=== PATIENT | male | born 1955 | race Caucasian/White ===

== ENCOUNTER → 2019-10-18 09:33 | Outpatient (CLI) | payer OTHER, SELFPAY ==
--- NOTE | 2019-10-18 | DI.MRI.S_ITS ---
PROCEDURE: MR LUMBAR SPINE WO CON INDICATIONS: Radiculopathy, lumbar region TECHNIQUE: Noncontrast sagittal T1 spin echo and T2 fast echo, sagittal STIR, axial T1 and T2 fast spin echo through the lumbar spine. In cases with scoliosis, additional coronal T2 fast spin echo may be performed. COMPARISON: None. FINDINGS: Image quality: Excellent. Alignment and Curvature: Mild dextroconvex scoliotic curvature is seen. Minimal anterolisthesis is seen at the L3-4 level. Minimal retrolisthesis is seen at L4-5. Bone Marrow: Marrow is of normal overall signal. No acute vertebral body compression fractures. There is mild anterior wedge deformity seen of L2, with 25% loss of height anteriorly. No acute features are seen. Spinal Cord: Conus medullaris terminates at the L1 level. Visualized cord demonstrates normal signal and size. Paraspinous Soft Tissues: No paravertebral masses. T12-L1: Mild loss of disc height is seen. Loss of disc signal is seen. Bridging endplate osteophytes are seen. Mild to moderate facet hypertrophy is seen. Associated hypertrophy of the ligamentum flavum can be seen. There is no significant right-sided and moderate to severe left-sided neural foraminal narrowing seen. There is a mild degree of compression seen upon the exiting left T12 nerve root. Mild to moderate central canal narrowing is seen. L1-L2: The disc height is well-preserved. Loss of disc signal is seen at this level. Bridging endplate osteophytes are seen. Moderate generalized disc bulge is seen. Mild to moderate facet hypertrophy is seen. There is moderate right-sided and at least moderate left-sided neural foraminal narrowing seen. Moderate central canal narrowing is seen. L2-L3: The disc height is well-preserved. Loss of disc signal is seen at this level. Moderate disc bulge is seen, which is eccentric to the right. There is at least moderate facet hypertrophy seen. There is at least moderate bilateral neural foraminal narrowing seen. There is a degree of compression seen upon the exiting nerve roots. At least moderate central canal narrowing is seen. L3-L4: The disc height is well-preserved. Loss of disc signal is seen at this level. Moderate prominent disc bulge is seen. There is a central disc protrusion. Prominent facet hypertrophy is seen. Associated hypertrophy of the ligamentum flavum can be seen. There is moderate to severe bilateral neural foraminal narrowing seen, left worse than right. There is a degree of compression seen upon the exiting nerve roots. Severe central canal narrowing is seen. L4-L5: The disc height is well-preserved. Loss of disc signal is seen at this level. Moderate disc bulge is seen, which is eccentric to the right. There is a central/right disc extrusion seen, with mild inferior migration of the disc material. There is an associated annular fissure seen. There is moderate to prominent right-sided and moderate left-sided facet hypertrophy seen. Moderate to severe bilateral neural foraminal narrowing is seen, right worse than left. There is a degree of compression seen upon the exiting nerve roots. Moderate central canal narrowing is seen. L5-S1: The disc height and disc signal are relatively well preserved. Moderate generalized disc bulge is seen. Moderate facet joint hypertrophy is seen. Minimal bilateral neural foraminal narrowing is seen. Mild central canal narrowing is seen. IMPRESSION: Multiple levels of lumbar spine degenerative change are seen, which are most prominent at the L3-L4 and L4-5 levels. Moderate to severe bilateral neural foraminal narrowing can be seen at L3-4 and L4-5, with associated nerve root compression. At least moderate neural foraminal narrowing is seen at L2-3, with associated exiting nerve root compression. There is severe central canal narrowing at L3-L4. Dictated by: Marty Cobian M.D. on 10/18/2019 at 10:13 Approved by: Marty Cobian M.D. on 10/18/2019 at 10:19
== END ==
PROVIDERS: PCP Family Medicine; Referring Provider Family Medicine; Visit Provider Family Medicine
DX: M47.26 Other spondylosis with radiculopathy, lumbar region (principal); M47.27 Other spondylosis with radiculopathy, lumbosacral region; M41.86 Other forms of scoliosis, lumbar region; M43.16 Spondylolisthesis, lumbar region; M48.061 Spinal stenosis, lumbar region without neurogenic claudication; M48.07 Spinal stenosis, lumbosacral region
CPT/HCPCS: 72148

== ENCOUNTER → 2020-08-13 15:33 | Outpatient (CLI) | payer MEDICARE, OTHER, SELFPAY ==
[2020-08-13 16:20] LABS: Add Manual Diff / Slide Review NO; Basophils Absolute Auto 100 /uL (0-100); Basophils Percent Auto 0.8 % (0-2); Eosinophils Absolute Auto 100 /uL (0-450); Eosinophils Percent Auto 1.6 % (2-4); Hematocrit 42.7 % (41-53); Hemoglobin 14.4 g/dL (13.5-17.5); Lymphocytes Absolute Auto 2300 /uL (1100-4500); Lymphocytes Percent Auto 35.6 % (25-40); Mean Corpuscular HGB Conc 33.7 % (30-36); Mean Corpuscular Hemoglobin 31.3 PG (26-34); Mean Corpuscular Volume 92.9 fL (80-100); Monocytes Absolute Auto 600 /uL (0-900); Monocytes Percent Auto 9.7 % (3-14); Neutrophils Absolute Auto 3300 /uL (1500-7000); Neutrophils Percent Auto 52.3 % (50-75); Platelet Count 157 X10^3/uL (150-400); Red Blood Cell Count 4.59 X10^6/uL (4.5-5.9); Red Cell Distribution Width 13.4 % (11.6-14.8); White Blood Cell Count 6.3 X10^3/uL (4.5-11.0)
[2020-08-13 16:22] LABS: Alanine Aminotransferase 24 IU/L (<50); Albumin 4.3 g/dL (3.5-5.0); Albumin Globulin Ratio 1.3 (1.0-2.8); Alkaline Phosphatase 85 U/L (38-126); Aspartate Aminotransferase 46 IU/L (17-59); Bilirubin Total 0.8 mg/dL (0.2-1.3); Blood Urea Nitrogen 20 mg/dL (9-20); Calcium 9.3 mg/dL (8.4-10.2); Carbon Dioxide 27 mmol/L (22-32); Chloride 104 mmol/L (98-107); Cholesterol 185 mg/dL (140-199); Estimated Glomerular Filt Rate > 60.0 mL/min (>60); Globulin 3.2 g/dL (1.7-4.1); Glucose 92 mg/dL (80-110); HDL Cholesterol 63 mg/dL (40-60); LDL Cholesterol Calculated 104 mg/dL (<100); Potassium 4.9 mmol/L (3.4-5.1); Sodium 137 mmol/L (137-145); Total Protein 7.5 g/dL (6.3-8.2); Triglycerides 89 mg/dL (35-150); Uric Acid 6.4 mg/dL (3.5-8.5)
[2020-08-13 16:23] LABS: HEMOLYSIS 111 (0-50)
[2020-08-13 16:24] LABS: Erythrocyte Sedimentation Rate 4 MM/HR (0-15); Hemoglobin A1C% w Est Avg Glu 5.3 % (4.0-6.0)
[2020-08-13 16:28] LABS: High Sensitivity CRP - Cardiac 1.2 mg/L (1.0-3.0); Rheumatoid Factor < 8.6 IU/mL (<12.0)
[2020-08-13 17:09] LABS: Thyroid Stimulating Hormone 2.46 uIU/mL (0.47-4.68)
== END ==
PROVIDERS: PCP Family Medicine; Referring Provider Ophthalmology; Visit Provider Ophthalmology
DX: H34.8120 Central retinal vein occlusion, left eye, with macular edema (principal); I10 Essential (primary) hypertension
CPT/HCPCS: 36415; 80053; 80061; 83036; 84443; 84550; 85025; 85651; 86140; 86430

== ENCOUNTER → 2020-09-11 12:54 | Outpatient (CLI) | payer MEDICARE, OTHER, SELFPAY ==
--- NOTE | 2020-09-11 | DI.US.S_ITS ---
PROCEDURE: US CAROTID DOPPLER BI INDICATIONS: Central retinal vein occlusion TECHNIQUE: Color and pulse Doppler interrogation was performed of both carotid systems, with image documentation and velocity measurements. COMPARISON: None. FINDINGS: Stenosis calculations are based on SRU (Society of Radiologists in Ultrasound) criteria. Right side: Brachial blood pressure: 125/82 mm Hg. Common carotid artery peak systolic velocity: 96 cm/sec. Internal carotid artery peak systolic velocity: 77 cm/sec. Internal carotid artery end diastolic velocity: 19 cm/sec. External carotid artery peak systolic velocity: 89 cm/sec. ICA/CCA peak systolic ratio: 0.8 Osuna scale imaging description: Mild plaque Percent internal carotid artery stenosis: Less than 50% Vertebral artery: Flow direction is antegrade. Left side: Brachial blood pressure: 117/76 mm Hg. Common carotid artery peak systolic velocity: 133 cm/sec. Internal carotid artery peak systolic velocity: 98 cm/sec. Internal carotid artery end diastolic velocity: 41 cm/sec. External carotid artery peak systolic velocity: 90 cm/sec. ICA/CCA peak systolic ratio: 0.7 Osuna scale imaging description: Mild scattered plaque Percent internal carotid artery stenosis: Less than 50% . Vertebral artery: Flow direction is antegrade. IMPRESSION: Less than 50% bilateral internal carotid artery stenosis. Dictated by: Carlos Sanders [facility] Interpreted: Julio Pepe MD on 09/11/2020 at 14:22 Transcribed by: GRACE on 09/11/2020 at 14:26 Approved by: Julio Pepe M.D. on 09/11/2020 at 18:04
== END ==
PROVIDERS: PCP Family Medicine; Referring Provider Ophthalmology; Visit Provider Ophthalmology
DX: H34.8120 Central retinal vein occlusion, left eye, with macular edema (principal); I65.23 Occlusion and stenosis of bilateral carotid arteries
CPT/HCPCS: 93880

== ENCOUNTER 2024-01-17 13:27 | Day surgery (SDC) | payer MEDICARE, OTHER, SELFPAY ==
--- NOTE | 2024-01-17 | PATH_ITS ---
[facility] Accession Number: [id number] No. of containers..02 Tissue . 01 Material submitted: . PART A: colon - TRANSVERSE POLYP PART B: sigmoid colon - SIGMOID POLYP . 01 Diagnosis: A. TRANSVERSE COLON POLYP: Tubular adenoma. . B. SIGMOID COLON POLYP: Tubular adenoma. MRV 01/19/2024 1836 Local . 01 Electronically signed: . Jose Juan Woodson MD, PhD, Pathologist NPI- [id number] . 01 Gross description: . A. Received in formalin with two patient identifiers and transverse colon polyp, are two gibson soft tissue fragments, 0.2 to 0.3 cm in greatest dimension, submitted in A1. B. Received in formalin with two patient identifiers and sigmoid colon biopsy, is a single gibson soft tissue fragment, 0.5 cm in greatest dimension, submitted in B1. ([id number]) /MRV 01/18/2024 2108 Local . 01 Pathologist provided ICD-10: D12.3, D12.5 . 01 CPT . 293050, 942411 Specimen Comment: A courtesy copy of this report has been sent to [phone] Performed at: [address] [facility] [address], [place], [place] [id number] MD Mark Carter MD Phone: [phone]
[2024-01-17 14:13] VITALS: BP 141/90; PULSE 93; RESP 14; TEMP 36.9; O2SAT 94
--- NOTE | 2024-01-17 14:32 | PM.HP.1 ---
History of Present Illness History of Present Illness Date Patient Seen: 01/17/24 Time Patient Seen: 14:32 Chief complaint: Colonoscopy Narrative: 68-year-old male here for colon cancer screening. He was not sure when his last exam was but does not recall any prior history of colon polyps. [facility] Social History Smoking Status: Never smoker alcohol intake: former Meds Home Medications and Allergies Home Medications Medication Instructions Recorded Confirmed Type lisinopril 10 mg tablet 10 mg PO QDAY #90 tabs 08/26/16 01/17/24 Rx amlodipine 5 mg tablet 5 mg PO DAILY 01/17/24 01/17/24 History atorvastatin 80 mg tablet 80 mg PO DAILY 01/17/24 01/17/24 History gabapentin 300 mg capsule 300 mg PO BID 01/17/24 01/17/24 History meloxicam 7.5 mg tablet 7.5 mg PO BID PRN pain 01/17/24 01/17/24 History naltrexone 50 mg tablet 50 mg PO DAILY 01/17/24 01/17/24 History Allergies Allergy/AdvReac Type Severity Reaction Status Date / Time No Known Drug Allergies Allergy Verified 01/17/24 14:11 Review of Systems Review of Systems ROS: Yes All systems reviewed with the patient and are negative except as otherwise documented Exam Vital Signs (past 8 hours): - 01/17/24 14:13 Temperature 98.4 F Pulse Rate 93 H Respiratory Rate 14 Blood Pressure 141/90 H Pulse Oximetry 94 Oxygen Delivery Method Room Air Oxygen Delivery Method Room Air Const General: cooperative HENMT Head: normal to inspection Eyes General: appearance normal, both eyes and all related structures Neck Neck: normal visual inspection Chest Chest: normal inspection of the chest Resp Effort & Inspection: normal respiratory effort Cardio Rate: regular rate GI Inspection: normal to inspection Skin General: no rashes or lesions noted Neuro General: patient alert and patient awake Extrem General: normal to inspection and no pedal edema Psych Appearance: grossly normal Assessment & Plan Assessment & Plan narrative: 68-year-old male indicated for colon cancer screening. Colonoscopy is pursued today. Time-Based Coding :: [TOTAL MINUTES] spent with patient and on the chart (including review of chart, obtaining history, exam, reviewing outside data, placing orders, documenting exam and treatment plan, and counseling patient) on [DATE].
--- NOTE | 2024-01-17 14:33 | PM.PREOP ---
Pre-operative Note Interval Note History & Physical reviewed/Exam performed by Physician: Yes Changes to H&P: No ASA Class (for procedural sedation): II
--- NOTE | 2024-01-17 15:37 | PM.OP.COLON ---
Operative Date/Time/Diagnoses Date of procedure: 01/17/24 Time of procedure: 15:37 Pre-op diagnosis: Colon cancer screening Post-op diagnosis: same Procedure & Clinicians Study performed: Colonoscopy with cold snare polypectomy and cold forceps polypectomy Same procedure as scheduled: Yes Indications: Colon cancer screening Surgeon: Deven Kumar Procedure Notes SCOAP/Timeout: Done Procedure in detail: After the risks and benefits were explained, written and verbal informed consent was obtained. The patient was brought into the procedure room and placed into the left lateral decubitus position. Please see anesthesia note for sedation details. Digital rectal examination was accomplished. The scope was introduced into the patient and advanced under direct visualization to the cecum as identified by the appendiceal orifice and ileocecal valve. The scope was slowly withdrawn to carefully examine the mucosa for any defects or lesions. Comprehensive imaging was accomplished throughout the rectum including the dentate line. The colon was decompressed, the scope was then removed from the patient who tolerated the procedure well. Adult colonoscope Bowel prep fair; with copious irrigation and suction this was rendered adequate. Scope withdrawal time: 13 minutes Sedation minutes: 27 Complications: none Impression: There was a sessile 4-5 mm polyp in the transverse colon removed with cold snare. After the initial excision there was a small fragment from the proximal edge of the polyp that had been left behind which was removed with cold forceps. In the sigmoid colon there was a 5 mm sessile polyp removed with cold snare. No additional significant mucosal pathology was appreciated throughout. The patient had evidence of grade 2 internal hemorrhoids with hypertrophied anal papillae. Endoscopic diagnosis 1. Colon polyps 2. Grade 2 hemorrhoids with hypertrophied anal papillae Post-procedure Plan for aftercare: 1. Await histology 2. Repeat colonoscopy timing will be contingent on histopathology results. Disposition: PACU
[2024-01-17 15:40] VITALS: BP 129/88; PULSE 73; RESP 18; TEMP 37.1; O2SAT 92
[2024-01-17 15:46] VITALS: BP 112/82; PULSE 75; RESP 21; O2SAT 94
[2024-01-17 15:51] VITALS: BP 131/92; PULSE 74; RESP 17; O2SAT 95
[2024-01-17 16:00] VITALS: BP 127/88; PULSE 68; RESP 19; O2SAT 96
== END 2024-01-17 16:15 | disposition home or self-care (01) ==
PROVIDERS: PCP Physician Assistant; Referring Provider Internal Medicine Gastroenterology; Visit Provider Internal Medicine Gastroenterology
PROC: 0DJD8ZZ Inspection of Lower Intestinal Tract, Via Natural or Artificial Opening Endoscopic (ICD-10-PCS; CPT 45378; principal; 2024-01-17 14:30)
DX: Z12.11 Encounter for screening for malignant neoplasm of colon (principal); K64.1 Second degree hemorrhoids; K64.4 Residual hemorrhoidal skin tags; D12.3 Benign neoplasm of transverse colon; D12.5 Benign neoplasm of sigmoid colon
CPT/HCPCS: 45385; 45380; J2704

== ENCOUNTER → 2024-01-18 12:26 | Outpatient (CLI) | payer MEDICARE, OTHER, SELFPAY ==
--- NOTE | 2024-01-18 12:27 | DI.MRI.S_ITS ---
PROCEDURE: MR LUMBAR SPINE WO CON INDICATIONS: extreme lower back pain TECHNIQUE: Noncontrast sagittal T1 spin echo and T2 fast echo, sagittal STIR, and T2 fast spin echo through the lumbar spine. In cases with scoliosis, additional coronal T2 fast spin echo may be performed. COMPARISON: [facility], MR, MR LUMBAR SPINE WO CON, 10/18/2019, 9:50. FINDINGS: Image quality: Excellent. Alignment and Curvature: Trace retrolisthesis of L2 on L3. Trace anterolisthesis of L3 on L4. Trace retrolisthesis of L4 on L5. Bone Marrow: Marrow is of normal overall signal. No acute vertebral body compression fractures. Spinal Cord: Conus medullaris terminates at the T12-L1 level. Visualized cord demonstrates normal signal and size. Paraspinous Soft Tissues: No paravertebral masses. T12-L1: Facet hypertrophy. No canal stenosis or significant foraminal stenosis. L1-L2: Facet hypertrophy. No canal stenosis or significant foraminal stenosis. L2-L3: Progressive findings. Retrolisthesis. Disc bulge. Prominent facet hypertrophy. Increased, moderate to severe canal stenosis, underestimated by choice of axial scan plane. [id number] right foraminal narrowing. Moderate to severe left foraminal narrowing with a degree of left foraminal L2 nerve root impingement. This is also progressive. L3-L4: Slight interval progression. Trace anterolisthesis. Disc bulge. Exuberant facet and ligament hypertrophy. Severe/high-grade canal stenosis. Moderate bilateral foraminal stenosis. L4-L5: Slightly progressive findings. Disc bulge with increase of a superimposed mild right paracentral inferior disc extrusion. Moderate central canal stenosis. Severe right lateral recess stenosis with obliteration of the right L5 nerve root in the right lateral recess. Progressive moderate to severe right foraminal narrowing with right foraminal L4 nerve root impingement. Progressive moderate left foraminal stenosis. L5-S1: Bilateral facet hypertrophy. No canal stenosis or significant foraminal stenosis. IMPRESSION: 1. Progressive findings at multiple levels. 2. Multilevel underlying facet arthropathy. 3. Canal stenosis is moderate to severe at L2-L3--increased at this level. It is severe/high-grade at L3-L4, increased at this level. There is moderate central canal stenosis at L4-L5 with severe right lateral recess stenosis and obliteration of the right L5 nerve root in the right lateral recess. It is progressive at this level. 4. Progressive multilevel foraminal narrowing. Findings include moderate to severe left foraminal narrowing at L2-L3--progressive, as well as moderate to severe right foraminal narrowing at L4-L5--progressive at this level as well. Dictated by: Garrett Staley M.D. on 01/18/2024 at 18:19 Approved by: Garrett Staley M.D. on 01/18/2024 at 18:31
== END ==
LOC: MRI 12:26
PROVIDERS: PCP Physician Assistant; Referring Provider Nurse Practitioner; Visit Provider Nurse Practitioner
DX: M47.26 Other spondylosis with radiculopathy, lumbar region (principal); M47.27 Other spondylosis with radiculopathy, lumbosacral region; M48.061 Spinal stenosis, lumbar region without neurogenic claudication; M51.16 Intervertebral disc disorders with radiculopathy, lumbar region
CPT/HCPCS: 72148